=== PATIENT | female | born 1995 | race Caucasian/White ===

== ENCOUNTER 2019-01-15 12:40 | Emergency (ER) | payer OTHER ==
[2019-01-15 13:41] LABS: APPEARANCE,URINE Slightly Cloudy; BILIRUBIN,URINE NEGATIVE (NEGATIVE); COLOR,URINE Yellow; GLUCOSE, URINE (UA) NEGATIVE (NEGATIVE); KETONES,URINE NEGATIVE (NEGATIVE); LEUKOCYTE ESTERASE ,URINE 1+ (NEGATIVE); NITRATE,URINE POSITIVE (NEGATIVE); OCCULT BLOOD,URINE NEGATIVE (NEG-TRACE); UROBILINOGEN,URINE 0.2 (0.2-1.0 EU)
[2019-01-15 13:45] VITALS: BP 127/75; PULSE 105; RESP 20; TEMP 97.3; O2SAT 100
[2019-01-15 13:52] LABS: BACTERIA 3+ (< 1+); CRYSTALS NEGATIVE (0-3 AVE/HPF); EPITHELIAL CELLS 0-4 (SQUAMOUS); RBC,URINE NEG (0-3AV/HPF)
== END 2019-01-15 14:15 | disposition home or self-care (01) | DRG 999 ==
LOC: ED 12:40
DX: V87.7XXA Person injured in collision between other specified motor vehicles (traffic), initial encounter (principal); O23.41 Unspecified infection of urinary tract in pregnancy, first trimester; Z3A.21 21 weeks gestation of pregnancy
CPT/HCPCS: 81001; 87077; 87088; 87186; 99282; 99283

== ENCOUNTER 2019-05-23 12:37 | Inpatient (IN) | payer OTHER ==
[2019-05-23] MEDS ORDERED: LACTATED RINGERS 1,000 ML IV PRN (15:04)
[2019-05-23] MEDS ORDERED: METHYLERGONOVINE MALEATE 0.2 MG/ML SOL IM PRN (15:04)
[2019-05-23] MEDS ORDERED: MEPIVACAINE HCL 1% MPF 30 ML/VIAL SOL INFIL PRN (15:04)
[2019-05-23] MEDS ORDERED: FENTANYL 100MCG/2ML SOL IV PRN (15:04)
[2019-05-23] MEDS ORDERED: CARBOPROST 250 MCG/ML SOL IM PRN (15:04)
[2019-05-23] MEDS ORDERED: OXYTOCIN 10000 MU/ML SOL IM PRN (15:04)
[2019-05-23] MEDS ORDERED: SODIUM CHLORIDE 0.9% FLUSH 10 ML SOL IV PRN (15:04)
[2019-05-23] MEDS ORDERED: AMPICILLIN 1 GM PDS ONE ×2 (15:13→19:15)
[2019-05-23] MEDS ORDERED: AMPICILLIN 1 GM PDS 2 GM in SODIUM CHLORIDE 0.9% 100 ML 100 ML IV SCH (15:15)
[2019-05-23] MEDS: SODIUM CHLORIDE 0.9% FLUSH 10 ML SOL IV SCH (16:00)
[2019-05-23 16:57] LABS: BASOPHILS % (AUTO) 1 % (0-3); EOSINOPHILS % (AUTO) 1 % (0-9); HEMATOCRIT 35 % (35-47); HEMOGLOBIN 10.8 gm/dl (12.0-15.5); LYMPHOCYTES % (AUTO) 16.5 % (10-50); MEAN CORPUSCULAR HEMOGLOBIN 25.9 pg (27.0-32.0); MEAN CORPUSCULAR HGB CONC 30.9 gm/dl (32.0-36.0); MEAN CORPUSCULAR VOLUME 84 fL (81-99); NEUTROPHILS % (AUTO) 76.4 % (37-80)
[2019-05-23] MEDS ORDERED: EPHEDRINE SULFATE 50 MG/ML SOL IV PRN (17:47)
[2019-05-23] MEDS ORDERED: DIPHENHYDRAMINE 50 MG/ML SOL IV PRN ×2 (17:47→21:50)
[2019-05-23] MEDS ORDERED: NALBUPHINE HCL 20 MG/ML SOL IV PRN (17:47)
[2019-05-23] MEDS ORDERED: NALOXONE HYDROCHLORIDE 0.4 MG/ML SOL IV PRN (17:47)
[2019-05-23] MEDS: LACTATED RINGERS 1,000 ML IV SCH (17:50)
[2019-05-23] MEDS ORDERED: ROPIVACAINE HYDROCHLORIDE 5 MG/ML SOL ONE (17:57)
[2019-05-23] MEDS ORDERED: LIDOCAINE HCL 2% MPF 10 ML SOL ONE (17:57)
[2019-05-23] MEDS ORDERED: FENTANYL 250 MCG/ 5ML SOL ONE (17:57)
[2019-05-23] MEDS ORDERED: LACTATED RINGERS 1,000 ML IV SCH (18:00)
[2019-05-23] MEDS ORDERED: LIDOCAINE 1% W/EPI MPF 30 ML SOL ONE (18:03)
[2019-05-23] MEDS ORDERED: AMPICILLIN 1 GM PDS 1 GM in SODIUM CHLORIDE 0.9% 100 ML 100 ML IV SCH (19:30)
[2019-05-23] MEDS ORDERED: WITCH HAZEL 1 EA PAD TOP PRN (21:06)
[2019-05-23] MEDS ORDERED: APAP/HYDROCODONE 1 EACH TABLET PO PRN (21:06)
[2019-05-23] MEDS ORDERED: FLEET ENEMA PR PRN (21:06)
[2019-05-23] MEDS ORDERED: METHYLERGONOVINE MALEATE 0.2 MG TAB PO PRN (21:06)
[2019-05-23] MEDS ORDERED: BISACODYL 10 MG SUP PR PRN (21:06)
[2019-05-23] MEDS ORDERED: TEMAZEPAM 15MG 15 MG CAP PO PRN (21:06)
[2019-05-23] MEDS ORDERED: BENZOCAINE/MENTHOL 1 SPR TOP PRN (21:06)
[2019-05-24] MEDS: SODIUM CHLORIDE 0.9% FLUSH 10 ML SOL IV SCH ×3 (01:06→19:28)
[2019-05-24] MEDS: LACTATED RINGERS 1,000 ML IV SCH (02:58)
[2019-05-24] MEDS ORDERED: ACETAMINOPHEN 500 MG 500 MG TAB PO PRN (05:22)
[2019-05-24] MEDS ORDERED: ACETAMINOPHEN 500 MG 500 MG TAB ONE (05:35)
[2019-05-24] MEDS: DOCUSATE SODIUM 100 MG SGL PO SCH ×2 (09:46→21:14)
[2019-05-24] MEDS: IBUPROFEN 600 MG TAB PO PRN (14:45)
[2019-05-25] MEDS: SODIUM CHLORIDE 0.9% FLUSH 10 ML SOL IV SCH ×2 (00:31→06:26)
[2019-05-25 06:04] VITALS: RESP 16
[2019-05-25] MEDS: IBUPROFEN 600 MG TAB PO PRN (06:26)
[2019-05-25] MEDS: DOCUSATE SODIUM 100 MG SGL PO SCH (09:58)
[2019-05-25 14:39] VITALS: BP 118/82; PULSE 90; TEMP 97.5; O2SAT 98
== END 2019-05-25 17:10 | disposition home or self-care (01) | DRG 998 ==
LOC: OB 12:37 → OBOP 12:37 → EDSTATUS 14:16
PROVIDERS: ADMIT Family Medicine; ATTEND Family Medicine
PROC: 3E04329 Introduction of Other Anti-infective into Central Vein, Percutaneous Approach (ICD-10-PCS; principal; 2019-05-23)
PROC: 10E0XZZ Delivery of Products of Conception, External Approach (ICD-10-PCS; 2019-05-23)
PROC: 10907ZC Drainage of Amniotic Fluid, Therapeutic from Products of Conception, Via Natural or Artificial Opening (ICD-10-PCS; 2019-05-23)
DX: O80 Encounter for full-term uncomplicated delivery (principal); O99.824 Streptococcus B carrier state complicating childbirth; Z3A.39 39 weeks gestation of pregnancy
CPT/HCPCS: 36415; 59025; 85018; 85025; 99070; J0290; J0670; J1200; J2590; J2795; J3010; A9270-GY